=== PATIENT | male | born 1950 | race American Indian/Alaskan Native ===

== ENCOUNTER 2019-05-22 12:46 | Emergency (ER) | payer SELFPAY ==
--- NOTE | 2019-05-22 14:03 | Emergency Department Report ---
Blank Doc - Documentation Documentation: 68-year-old male that presents with right inguinal pain with history of hernia. This initial assessment/diagnostic orders/clinical plan/treatment(s) is/are subject to change based on patient's health status, clinical progression and re- assessment by fellow clinical providers in the ED. Further treatment and workup at subsequent clinical providers discretion. Patient/guardians urged not to elope from the ED as their condition may be serious if not clinically assessed and managed. Initial orders include: 1- Patient sent to MAIN ED for further evaluation and treatment 2- labs 3- UA
[2019-05-22 14:10] VITALS: BP 187/118
[2019-05-22 14:48] LABS: Bacteria,Urine 1+ /HPF (Negative); Bilirubin,Urine NEG (Negative); Blood,Urine LG (Negative); Color,Urine Yellow (Yellow); Mucus,Urine FEW /HPF; Protein,Urine <15 mg/dL mg/dL (Negative); Urobilinogen,Urine < 2.0 mg/dL (<2.0)
[2019-05-22 14:49] LABS: WBC,Urine > 182.0 /HPF (0.0-6.0)
[2019-05-22 14:52] LABS: Basophils # (Auto) 0.1 K/mm3 (0.0-0.1); Basophils % (Auto) 0.4 % (0.0-1.8); Eosinophils % (Auto) 0.3 % (0.0-4.3); Hematocrit 45.2 % (35.5-45.6); Hemoglobin 15.6 gm/dl (11.8-15.2); Lymphocytes # (Auto) 1.4 K/mm3 (1.2-5.4); Lymphocytes % (Auto) 8.9 % (13.4-35.0); Mean Corpuscular HGB Conc 35 % (32-34); Mean Corpuscular Volume 87 fl (84-94); Monocytes # (Auto) 1.5 K/mm3 (0.0-0.8); Monocytes % (Auto) 9.2 % (0.0-7.3); Platelet Count 312 K/mm3 (140-440); Red Blood Count 5.21 M/mm3 (3.65-5.03); Red Cell Distribution Width 12.6 % (13.2-15.2)
--- NOTE | 2019-05-22 15:03 | Emergency Department Report ---
ED Male HPI - General Chief complaint: Urogenital-Male Stated complaint: GROIN AREA/PAIN/BLOOD IN URINE Time Seen by Provider: 05/22/19 14:02 Source: patient Mode of arrival: Wheelchair Limitations: No Limitations - History of Present Illness Initial comments: 68 yo male c/o dark urine, groin pain, scrotal pain penile discharge x 4 days. He denies fever,n/v, abdominal pain, chest pain and sob. PMH of HTN treated with Amlodipine . - Related Data Previous Rx's Medication Instructions Recorded Last Taken Type Doxycycline Monohydrate 100 mg PO BID 7 Days #14 capsule 05/22/19 Unknown Rx [Doxycycline Monohydrate CAP] Allergies Allergy/AdvReac Type Severity Reaction Status Date / Time No Known Allergies Allergy Verified 05/22/19 14:10 ED Review of Systems ROS: Stated complaint: GROIN AREA/PAIN/BLOOD IN URINE Other details as noted in HPI Comment: All other systems reviewed and negative Constitutional: malaise. denies: chills, fever Respiratory: denies: cough Cardiovascular: denies: chest pain Genitourinary: discharge, other (RIGHT SCROTAL SWELLING) Skin: denies: rash, lesions ED Past Medical Hx - Past Medical History Previous Medical History?: Yes Hx Hypertension: Yes - Surgical History Past Surgical History?: No - Social History Smoking Status: Never Smoker Substance Use Type: None - Medications Home Medications: Home Medications Medication Instructions Recorded Confirmed Last Taken Type Doxycycline Monohydrate 100 mg PO BID 7 Days #14 capsule 05/22/19 Unknown Rx [Doxycycline Monohydrate CAP] ED Physical Exam - General Limitations: No Limitations General appearance: alert, appears intoxicated - Head Head exam: Absent: atraumatic - Eye Eye exam: Absent: normal appearance - ENT ENT exam: Present: normal exam - Respiratory Respiratory exam: Present: normal lung sounds bilaterally - GI/Abdominal GI/Abdominal exam: Present: soft. Absent: distended, tenderness, guarding, organomegaly - exam: Present: scrotal swelling (RIGHT SCROTAL SWELLING AND TENDERNESS). Absent: urethral discharge - Back Exam Back exam: Present: normal inspection - Neurological Exam Neurological exam: Present: alert, oriented X3 - Psychiatric Psychiatric exam: Present: normal affect - Skin Skin exam: Present: warm, dry, intact, normal color. Absent: rash ED Course Vital Signs 12/24/19 14:02 Temperature 98.2 F Pulse Rate 82 Respiratory 20 Rate Blood Pressure 187/118 [Right] O2 Sat by Pulse 96 Oximetry ED Medical Decision Making - Lab Data Result diagrams: 05/22/19 14:30 05/22/19 14:30 - Radiology Data Radiology results: report reviewed US SCROTUM FINDINGS: Right testicle measures 3.8 x 3.1 x 3.8 cm. Left testicle measures 3.8 x 1.6 x 3.2 cm area negative for testicular lesion. There is mild vascular increased vascularity at the testicle. The right epididymis is prominent. A loculated right-sided hydrocele is moderate. IMPRESSION: 1. Right epididymoorchitis. 2. Complex right hydrocele. - Medical Decision Making 68 yo male with c/o of scrotal swelling and pain. Urine + elevated wbc Testicular US shows 1. Right epididymoorchitis. 2. Complex right hydrocele. Pt given Rocephin and Azithromycin while in ER to treat gonococcal and Chlamydia Discussed all findings with patient including elevated Glucose level, US report urine and lab results. He denies hx of Diabetes Inst. to follow up with PCP regarding elevated bloodsugar of 301mg/d. Pt verbalizes understanding Plan of care discussed with Dr. Garrido and she agrees . Critical care attestation.: If time is entered above; I have spent that time in minutes in the direct care of this critically ill patient, excluding procedure time. ED Disposition Clinical Impression: Epididymo-orchitis Disposition: - TO HOME OR SELFCARE Is pt being admited?: No Does the pt Need Aspirin: No Condition: Stable Instructions: Epididymitis (ED) Additional Instructions: TAKE MEDICATION PRESCRIBED. RETURN TO ER FOR INCREASING PAIN OR SWELLING. Follow up with your doctor or [facility]. Rest drink plenty fluids take advil or tylenol as directed for pain Today your blood sugar was 300 please follow up with your doctor regarding elevated blood sugar Prescriptions: Doxycycline Monohydrate [Doxycycline Monohydrate CAP] 100 mg PO BID 7 Days #14 capsule [facility] [Primary Care Provider] - 3-5 Days Time of Disposition: 19:02
[2019-05-22 15:04] LABS: BUN/Creatinine Ratio 20; Blood Urea Nitrogen 20 mg/dL (9-20); Calcium 9.4 mg/dL (8.4-10.2); Hemolysis Index 17
[2019-05-22] MEDS ORDERED: AZITHROMYCIN 1 GM ORAL PWDR PACKET PO ONE (15:12)
[2019-05-22] MEDS ORDERED: LIDOCAINE-MPF (1%) 10 MG/1 ML VIAL 5 ML INFILTRATI ONE (15:12)
--- NOTE | 2019-05-22 18:22 | Ultrasound Report ---
Scrotal ultrasound. 05/22/2019. HISTORY: Scrotal swelling. FINDINGS: Right testicle measures 3.8 x 3.1 x 3.8 cm. Left testicle measures 3.8 x 1.6 x 3.2 cm area negative for testicular lesion. There is mild vascular increased vascularity at the testicle. The right epididymis is prominent. A lo culated right-sided hydrocele is moderate. IMPRESSION: 1. Right epididymoorchitis. 2. Complex right hydrocele. Signer Name: Cosmo Coker MD Signed: 05/22/2019 6:17 PM Workstation Name: [id number]
== END 2019-05-22 19:18 | disposition home or self-care (01) ==
LOC: ED 12:46
DX: N45.3 Epididymo-orchitis (principal)
CPT/HCPCS: 36415; 80048; 81001; 85025; 87086; 93975; J0696; 96372

== ENCOUNTER 2022-02-13 22:02 | Emergency (ER) | payer SELFPAY ==
[2022-02-13 22:09] VITALS: BP 172/93
== END 2022-02-14 00:44 | disposition left against medical advice (07) ==
LOC: ED 22:02
DX: R10.9 Unspecified abdominal pain (principal); Z53.21 Procedure and treatment not carried out due to patient leaving prior to being seen by health care provider

== ENCOUNTER 2022-02-13 23:52 | Emergency (ER) | payer SELFPAY ==
[2022-02-14 00:47] VITALS: BP 170/103
[2022-02-14 01:25] LABS: Hematocrit 47.3 % (35.5-45.6); Hemoglobin 15.5 gm/dl (11.8-15.2); Mean Corpuscular HGB Conc 33 % (32-34); Mean Corpuscular Volume 88 fl (84-94); Platelet Count 345 K/mm3 (140-440); Red Cell Distribution Width 14.7 % (13.2-15.2)
[2022-02-14 01:43] LABS: Alanine Aminotransferase 12 units/L (7-56); Albumin 5.2 g/dL (3.9-5); BUN/Creatinine Ratio 11; Blood Urea Nitrogen 14 mg/dL (9-20); Calcium 10.2 mg/dL (8.4-10.2); Hemolysis Index 12
[2022-02-14 02:14] LABS: Basophils % (Manual) 0 % (0.0-1.8); Eosinophils % (Manual) 0 % (0.0-4.3); Platelet Estimate Consistent w Auto; Total Cells Counted 100
== END 2022-02-14 10:00 | disposition left against medical advice (07) ==
LOC: ED 23:52
DX: R53.1 Weakness (principal); Z53.21 Procedure and treatment not carried out due to patient leaving prior to being seen by health care provider
CPT/HCPCS: 36415; 80053; 85007; 85025